=== PATIENT | male | born 1960 | race Caucasian/White ===

== ENCOUNTER 2024-12-24 10:06 | Day surgery (SDC) | payer OTHER ==
--- NOTE | 2024-12-22 13:53 | HP ---
HISTORY OF PRESENT ILLNESS: Patient is a 64-year-old male who presents with a positive occult stool. He has had no colonoscopies to date. He denies any symptoms. PAST MEDICAL HISTORY: None. HOME MEDICATIONS: None. ALLERGIES: None. PAST SURGICAL HISTORY: Hernia, vasectomy. SOCIAL HISTORY: Occasional alcohol. FAMILY HISTORY: None. REVIEW OF SYSTEMS: CONSTITUTIONAL: Denies fever or chills. CHEST: Denies shortness of breath. CARDIOVASCULAR: Denies chest pain. ABDOMEN: Denies abdominal pain. PHYSICAL EXAMINATION: GENERAL: No acute distress. CARDIOVASCULAR: Regular rate and rhythm. RESPIRATORY: Nonlabored. No shortness of breath. ABDOMEN: Soft. ASSESSMENT: Positive occult stool. PLAN: EGD and colonoscopy with Dr. Dean Cueto. This report was dictated for Dr. Cueto by Jessica Soni NP.
[2024-12-24] MEDS: Lactated Ringers 1,000 ML IV SCH (10:17)
[2024-12-24] MEDS ORDERED: propofoL IV ONE ×2 (11:26→11:37)
[2024-12-24 12:38] VITALS: BP 144/85; PULSE 62; RESP 16; TEMP 98.1; O2SAT 94
--- NOTE | 2024-12-25 10:03 | OP ---
SURGERY DATE/TIME: 12/24/2024 [id number] PREOPERATIVE DIAGNOSIS: Hemoccult-positive stool. POSTOPERATIVE DIAGNOSES: 1) 2-inch hiatal hernia. 2) Grade 2/4 gastroesophageal reflux disease. 3) Patient has a mild hemorrhagic gastritis. 4) Colonoscopy normal to cecum. Anticipate followup on the colon 5 years. PROCEDURE: EGD/Colonoscopy. SURGEON: Dean Cueto M.D. PREP SCORE: Excellent. INDICATION FOR PROCEDURE: The patient has a Hemoccult-positive stool and is requiring both upper and lower exam. DESCRIPTION OF PROCEDURE: Taken to endoscopy. General anesthetic. Scope introduced. Vocal cords were normal. Pharyngoesophageal junction normal. Esophagus normal down to EG junction. Grade 2/4 GERD, 2-inch hiatal hernia. Fundus, body, antrum, it all has a very mild hemorrhagic gastritis. Pylorus normal. Duodenal bulb normal. Second portion normal. Scope withdrawn, looped upon itself, 2-inch hiatal hernia. Scope was withdrawn. Anal digital rectal examination satisfactory. Scope was introduced to anus, rectum, sigmoid. Scope advanced to the cecum. The base of the cecum, ileocecal valve, appendiceal orifice was normal. I believe this is this gentleman's first colonoscopic examination. Base of cecum, appendiceal orifice, ileocecal valve photographed. Ascending, hepatic, transverse, splenic, descending, sigmoid, rectum, anus satisfactory. IMPRESSION: Normal lower examination. PLAN: Follow up 5 years. Patient was placed on Protonix for his hemorrhagic gastritis. Findings were discussed with his .
== END 2024-12-24 12:45 | disposition home or self-care (01) ==
LOC: SDC 10:06
PROVIDERS: ATTEND Surgery
DX: K21.9 Gastro-esophageal reflux disease without esophagitis (principal); R19.5 Other fecal abnormalities; K44.9 Diaphragmatic hernia without obstruction or gangrene; K29.71 Gastritis, unspecified, with bleeding
CPT/HCPCS: J2704